=== PATIENT | female | born 1980 | race Caucasian/White ===

== ENCOUNTER 2019-11-10 23:00 | Emergency (ER) | payer SELFPAY ==
[2019-11-10 23:01] VITALS: BP 121/76; PULSE 83; RESP 16; TEMP 36.1; O2SAT 98; BMI 31.8
--- NOTE | 2019-11-10 23:18 | RAD_ITS ---
STUDY: X-RAY CHEST REASON FOR EXAM: Female, 38 years old. C/o cough x 1 month -- now having lt lateral and lt anterior (below breast) rib pain TECHNIQUE: PA and lateral views of the chest. COMPARISON: None. FINDINGS: There are superimposed monitor leads. There is no demonstrated pneumothorax. Mild elevation right hemidiaphragm and compression of right basilar parenchyma. There is no demonstrated pleural abnormality. Normal size heart. Normal mediastinum and luke. Normal visualized pulmonary arteries. Normal visualized aortic arch and descending thoracic aorta. Normal visualized thoracic spine. The eighth left rib course does not extend laterally as the main of the chest wall. There is no acute cortical disruption or adjacent soft tissue swelling or pleural fluid. There is no demonstrated abnormality of the visualized soft tissue structures of the upper abdomen. RAD/Chest PA and Lateral IMPRESSION: Compression of right basilar parenchyma with elevated right hemidiaphragm, small infiltrate not excluded. Variance in contour and course of the left eighth rib can be a congenital variant or posttraumatic. No acute osseous injury detected. Electronically Signed: Roma Park MD at 0:19 EST , Service support ,
--- NOTE | 2019-11-10 23:19 | ED.VIS.GEN ---
History of Present Illness Chief Complaint: Cough Informant: Patient Onset: Weeks - 3 weeks Context: Gradual Onset Current Severity: Moderate Maximum Severity: Moderate Narrative: Patient presents to the ED with continued cough and left lower rib pain. She states that the start of her illness 3 weeks ago she had fever and headache. She thought she had the flu. She was seen by her PCP and given a Z-Karri. When she was seen by her PCP she did not have cough but developed a cough shortly after. Earlier this week due to continued cough and chest congestion she was seen by her PCP again. He gave her a prescription for an antibiotic as well as Tessalon Perles. Patient has not noted significant improvement. Tonight she states she coughed and had sudden sharp worsened pain in the left lower ribs. She denies wheezing. Past Medical History - Allergies and Home Meds Allergies/Adverse Reactions: Allergies No Known Allergies Allergy (Verified 11/10/19 23:01) Primary Care Physician: Андрей Rand DO [Primary Care Provider] - Lives: With Family Smoking Status: Never smoker Review of Systems General: Reports: Fever - At onset of illness only, no fever in the past 2+ weeks. ENT: Denies: Bilateral ear pain, Sore throat Cardiovascular: Reports: Chest pain - Left lower ribs Respiratory: Reports: Dyspnea, Cough, Sputum - Rare sputum production Gastrointestinal: Denies: Abdominal pain, Nausea, Vomiting, Diarrhea Genitourinary: Denies: Dysuria Musculoskeletal: Denies: Extremity Pain Skin: Denies: Rash Neurological: Denies: Headache Allergy: Denies: Uticaria Physical Exam Vital Signs/Narrative: Vital Signs Temp Pulse Resp BP Pulse Ox 11/10/19 23:01 97.0 F L 83 16 121/76 H 98 Inital Vital Signs reviewed: Yes General: Well nourished, Well developed Head: Normocephalic ENT: Moist mucous membranes Neck: Supple Cardiovascular: Regular rate, Regular rhythm Respiratory: No distress, CTA bilaterally, Chest tenderness - Left lower rib tenderness Abdomen: Soft, Nontender Extremities: Nontender Skin: Normal color, No rash Neurological: Alert, Oriented x3 Psychological: Normal affect Diagnostic/Tx/Re-eval Impressions Chest X-Ray 11/10/19 23:18 IMPRESSION: Compression of right basilar parenchyma with elevated right hemidiaphragm, small infiltrate not excluded. Variance in contour and course of the left eighth rib can be a congenital variant or posttraumatic. No acute osseous injury detected. Electronically Signed: Roma Park MD at 0:19 EST , Service support , Chest CTA 11/11/19 00:23 IMPRESSION: No pulmonary embolism, aneurysm, leak or arterial dissection. Right lower lobe pneumonia with component of volume loss, hilar and mediastinal lymph node prominence. No acute vascular, parenchymal, visceral or osseous injury. Electronically Signed: Roma Park MD at 1:58 EST , Service support , 11/10/19 23:18 Chest PA and Lateral [RAD] Stat 11/11/19 00:23 CTA Chest W/WO Contrast [CT] Stat Laboratory Results 11/10/19 11/10/19 11/10/19 23:30 23:30 23:30 WBC 11.2 H RBC 4.38 Hgb 12.1 Hct 36.6 L MCV 83.6 MCH 27.6 MCHC 33.1 RDW Std Deviation 39.3 RDW Coeff of Jack 13.0 Plt Count 398 MPV 10.1 Immature Gran % (Auto) 0.300 Neut % (Auto) 65.7 Lymph % (Auto) 25.8 Collier % (Auto) 6.5 Eos % (Auto) 1.3 Baso % (Auto) 0.4 Absolute Neuts (auto) 7.4 Absolute Lymphs (auto) 2.89 Nucleated RBC % 0 Sodium 139 Potassium 3.9 Chloride 110 H Carbon Dioxide 25.0 Anion Gap 4 L BUN 16 Creatinine 0.97 Estim Creat Clear Calc 65.69 Est GFR (MDRD) Af Amer 83 Est GFR (MDRD) Non-Af 68 BUN/Creatinine Ratio 16.5 Glucose 93 Calcium 8.9 Serum , Qual NEGATIVE - Medical Decision Making Family was able to get a text photo of the antibiotic the patient is taking. Using a pill identifier we were able to determine that she is currently on Bactrim. Patient was given morphine and Zofran on arrival for pain. On repeat examination she is resting comfortably. X-ray does not show definitive acute abnormality in the left lower lung where she is having so much pain. In light of this CTA is pursued. She does have evidence of pneumonia, however it is on the right side. I believe she likely has muscle strain on the left from coughing. She will be given prescription for Levaquin along with Hycodan syrup to help control cough. ED Disposition - Plan for ED Patient: Disposition: Home or Assisted Living Diagnosis: Pneumonia Instructions: PNEUMONIA (Adult) Prescriptions: Hydrocodone Bit/Homatropine [Hycodan Syrup] 5 ml PO Q6H PRN PRN #60 mls PRN Reason: Cough Levofloxacin [Levaquin] 750 mg PO DAILY #4 tablet Referrals: Андрей Rand DO [Primary Care Provider] - 5-7 Days
[2019-11-10 23:31] VITALS: PULSE 87; RESP 16; O2SAT 97
[2019-11-10] MEDS: 0.9% Normal Saline 1,000 ML 150 ML IV (23:32)
[2019-11-10] MEDS: Ondansetron 4 MG/2 ML Vial IV (23:33)
[2019-11-10] MEDS: Morphine 4 MG/ML Syringe IV (23:33)
[2019-11-10 23:45] LABS: Absolute Lymphocyte Count 2.89 X10^3/uL (0.83-4.51); Absolute Neutrophil Count 7.4 X10^3/uL (2.0-7.7); Basophil# 0.05 X10^3/uL; Basophil% 0.4 % (0-1); Eosinophil# 0.14 X10^3/uL; Eosinophils% 1.3 % (0-5); Hematocrit 36.6 % (37-47); Hemoglobin 12.1 g/dL (12.0-15.0); Lymphocyte # 2.89 X10^3/ul (4.0); Lymphocyte % 25.8 % (19-41); Mean Corp Hgb Conc 33.1 g/dL (32-36); Mean Corpuscular Hgb 27.6 pg (27.0-32.0); Mean Corpuscular Volume 83.6 fL (81-99); Mean Platelet Vol. 10.1 fl (6.2-12.0); Monocyte# 0.73 X10^3/uL; Monocyte% 6.5 % (0-10); NRBC Flagged by Analyzer 0 % (0-5); Neutrophil # 7.35 X10^3/uL (2.7-7.7); Neutrophil % 65.7 % (47-70); Platelet Count 398 K/mm3 (150-450); RBC Distribution Width SD 39.3 fl (35.1-43.9); Red Blood Count 4.38 M/mm3 (4.2-5.4); White Blood Count 11.2 K/mm3 (4.4-11.0)
[2019-11-10 23:54] LABS: Internal QC Validated? YES +Cl - CLEAR BKGD; Pregnancy, Serum, hCG Quali. NEGATIVE Negative
[2019-11-10 23:57] LABS: Anion Gap 4 (5-15); BUN 16 mg/dL (7-18); BUN/Creat Ratio 16.5 RATIO (10-20); Calcium,Total 8.9 mg/dL (8.5-10.1); Chloride 110 mmol/L (98-107); Creatinine, Serum 0.97 mg/dL (0.55-1.02); EST Glomerular Filtration Rate 68 mL/min (>60); Est Glom Filt Rate - Afr Amer 83 mL/min (>60); Estimated Creatinine Clearance 65.69 ml/min; Glucose 93 mg/dL (74-106); Potassium 3.9 mmol/L (3.5-5.1); Sodium Level 139 mmol/L (136-145)
--- NOTE | 2019-11-11 00:23 | CT_ITS ---
STUDY: CTA CHEST REASON FOR EXAM: Female, 38 years old. SOB, LEFT SIDE RIB PAIN, COUGH X 1 MONTH, ON ATB RADIATION DOSAGE (If Supplied By Facility): CTDIvol = ( 12.27 ) mGy, DLP = ( 415.99 ) mGycm TECHNIQUE: The examination was performed with the intravenous administration of IV 75mL Isovue-370. Post-processing of the angiographic images was performed, with multiplanar reformation and 3D reconstruction. Individualized dose optimization techniques were used for this CT. COMPARISON: PA and lateral view chest 11/10/2019. FINDINGS: Normal enhancement of the main pulmonary artery and right and left pulmonary arteries. Normal enhancement of the bilateral peripheral pulmonary arteries. There is no demonstrated pulmonary embolism. Normal thoracic aorta and visualized great vessels. There is no demonstrated aortic dissection. Normal heart and pericardium. Enlarged subcarinal lymph nodes. Right hilar lymph node 0.8 x 1.3 cm. Normal visualized trachea and bronchi. Elevation right hemidiaphragm. Airspace disease in the right lower lobe with volume loss. Relative sparing of the posterior medial right lower lobe. There is no demonstrated pneumothorax. Normal pleura. Normal chest wall structures. Normal osseous structures. No acute displaced rib injuries. Normal visualized upper abdomen. CT/CTA Chest W/WO Contrast IMPRESSION: No pulmonary embolism, aneurysm, leak or arterial dissection. Right lower lobe pneumonia with component of volume loss, hilar and mediastinal lymph node prominence. No acute vascular, parenchymal, visceral or osseous injury. Electronically Signed: Roma Park MD at 1:58 EST , Service support ,
[2019-11-11] MEDS: levoFLOXacin 750 MG Tablet PO (02:13)
[2019-11-11 02:35] VITALS: PULSE 73; RESP 16; O2SAT 95
== END 2019-11-11 02:36 | disposition home or self-care (01) ==
PROVIDERS: Emergency Provider Emergency Medicine; PCP Family Medicine
DX: J18.9 Pneumonia, unspecified organism (principal)
CPT/HCPCS: 71046; 71275; 80048; 84703; 85025; 96361; 96374; 96375; 99284; J7030; Q9967; J2405

== ENCOUNTER 2024-04-27 19:22 | Emergency (ER) | payer OTHER, SELFPAY ==
[2024-04-27 19:23] VITALS: BP 127/96; PULSE 82; RESP 18; TEMP 36.7; O2SAT 98; BMI 32.5
[2024-04-27] MEDS: morphine 10 MG/ML Syringe 8 MG IM (21:17)
--- NOTE | 2024-04-27 21:30 | RAD_ITS ---
INDICATION: PAIN, WEAKNESS, SHOOTING PAIN FROM BACK DOWN TO LOWER EXTREMITIES, AND NUMBNESS SINCE NOVEMBER HX OF BULGING DISCS IN LOWER BACK EXAMINATION/TECHNIQUE: X-RAY - XR Sacrum/Coccyx Min 2 Views COMPARISON: None. FINDINGS: 3 views of the sacrum and coccyx. BONES: Normal anatomic alignment without evidence of fracture or subluxation. No concerning bony lesion or abnormal sclerosis to suggest lesion. JOINTS: No significant degenerative change. SOFT TISSUES: Unremarkable. RAD/Sacrum-Coccyx min 2 Views IMPRESSION: Unremarkable sacrum and coccyx radiographs. Electronically Signed: Pancho Wilson MD at 23:03 EDT ,
[2024-04-27 21:39] LABS: Mucous, Urine 0 SEEN /hpf (<or=2+); White Blood Cells 0 SEEN /hpf (0-5)
[2024-04-27 21:42] LABS: Color, Urine Yellow (Yellow); Glucose, Dipstick Normal (Normal); Ketone-Dipstick Negative (Negative); Leukocyte Esterase-Dipstick Negative /ul (Negative); Nitrite-Dipstick Negative (Negative); Occult Blood-Urine 25 /ul (Negative); Protein-Dipstick 30 mg/dl (Negative); Specific Gravity, Urine 1.025 (1.002-1.030); Urine Bilirubin Dipstick Negative (Negative); Urine Clarity Clear (Clear); Urine Urobilinogen Normal (Normal)
[2024-04-27 21:48] LABS: Bacteria RARE /hpf (None Seen); Red Blood Cells-Urine 5-10 SEEN /hpf (0-5); Squamous Epithelial Cells - UA 0-5 SEEN /hpf (5-10)
[2024-04-27 23:22] VITALS: PULSE 66; RESP 17; O2SAT 99
[2024-04-27 23:44] VITALS: BP 116/68; PULSE 66; RESP 17; TEMP 36.1; O2SAT 98
--- NOTE | 2024-04-28 00:10 | ED.VIS.BACK ---
HPI History of Present Illness Chief Complaint: Back Informant: patient and spouse/S.O. Narrative Narrative: Patient is a 43-year-old female presenting with worsening of her chronic back pain. Patient states she has had longstanding back issues for the last 19 years. She intermittently over the years is followed up with chiropractor and been told she has bulging disc. In the fall 2019 she had a particularly bad episode of back she had an MRI. It showed broad-based central disc bulge at L4/5 and L5/S1 as well as disc degeneration and mild bilateral foraminal narrowing. Patient states that in November of this year she went to her chiropractor and they did an adjustment of her back with cracking and since then she has had worsening pain. She notes that over the past 2 weeks her symptoms have flared up. It is in her lower back/tailbone area and radiates down her leg but worse on the left side. She states she feels that she has a hard time leaning over because of pain. Notes that [place] 2 weeks and she was in a 12 passenger van which was uncomfortable for her back as well. Patient states that she has been taking up to 600 mg of ibuprofen multiple times a day with no relief of her symptoms. Denies any bowel or bladder incontinence. She states the pain was so bad today she could not walk which is what brought her to the emergency room. Denies any fever or chills. Denies any trauma. No other complaints or concerns at this time. [facility] Medical History Vaginal delivery Narrowing of lumbar spine Bulging disc Home Medications ?Medication ?Instructions ?Recorded ?Last Taken ?Type Hydrocodone Bit/Homatropine 5 ml PO Q6H PRN PRN Cough ##60 11/11/19 Unknown Rx [Hycodan Syrup] levofloxacin 750 mg tablet 750 mg PO DAILY #4 tabs 11/11/19 Unknown Rx hydrocodone-acetaminophen 5-325mg 1 tab PO Q6H PRN PRN Pain 3 days 04/28/24 Unknown Rx 5mg-325mg #10 TABLETS prednisone 20 mg tablet 40 mg (2 x 20 mg) PO DAILY #8 tabs 04/28/24 Unknown Rx Allergy/AdvReac Type Severity Reaction Status Date / Time No Known Allergies Allergy Verified 04/27/24 19:25 Surgical History History of cholecystectomy Social History Smoking Status: Never smoker ROS ROS ED Constitutional Constitutional ED: Denies chills or fever(s) Cardiovascular Cardiovascular: Denies chest pain Respiratory/Chest Respiratory/Chest: Denies dyspnea Gastrointestinal Gastrointestinal: Denies abdominal pain, nausea or vomiting Genitourinary Genitourinary ED: Reports other Details: Denies urinary incontinence or saddle anesthesia Musculoskeletal Musculoskeletal: Reports back pain; Denies myalgias Integumentary Denies rash Neurologic Neurologic: Denies paresthesias or weakness Psychiatric Psychiatric: Denies anxiety Hematologic/Lymphatic Hematologic/Lymphatic: Denies easy bleeding or easy bruising EXAM Physical Exam Const Vital Signs: 04/27/24 19:23 04/27/24 23:22 04/27/24 23:44 Temperature 98.0 F 97.0 F L Temperature Source Temporal Pulse Rate 82 66 66 Respiratory Rate 18 17 17 Blood Pressure 127/96 H 116/68 Blood Pressure Mean 106 84 Pulse Ox 98 99 98 Oxygen Delivery Method Room Air Room Air Positive well nourished and well developed General Appearance ED: well developed and NAD HEENT Reports moist mucous membranes Neck supple Resp normal respiratory effort and clear to auscultation bilaterally Cardio regular rate and regular rhythm Cardio Narrative: 2+ DP pulses Back/Spine normal to inspection and no thoracic nor lumbar tenderness Back/Spine Narrative: Sensation intact in all dermatomes. 5/5 strength with dorsal and plantarflexion of the feet. Brisk bilateral patellar reflexes. No clonus of the ankles appreciated. Straight leg raise of the right leg causes shooting pain down the left leg. Only mild discomfort with straight leg rise of the left lower extremity. Thoracic Spine / Upper Back: Negative for paraspinal muscle tenderness Lumbar Spine / Lower Back: ROM limited and straight leg raise positive right at 50 degrees Extremity normal to inspection General Extremety ED: Negative for edema General Extremity: Negative for edema Neuro oriented x3 and no sensory deficits noted Sensorium / Orientation: alert Motor Exam: strength 5/5 throughout Psych mental status grossly normal Skin no rashes or lesions noted and no wounds MDM MDM MDM Narrative Medical decision making narrative: Patient is evaluated for worsening of her chronic back pain. She has no midline tenderness. She does not have any risk factors for cauda equina syndrome. She does not have any red flags for cauda equina syndrome. She is hemodynamically stable in the emergency room with normal vital signs. She does report a little bit of urgency with urination but denies any bowel or bladder incontinence. Urinalysis obtained which is not consistent with infection. Lumbar and sacral x-ray obtained and reviewed by myself as well as radiology. Does not show any acute fracture. Patient is given dose of IM morphine for pain control in the emergency room. Repeat evaluation she states she feels a little woozy but is feeling better from a pain standpoint. Will start her on a burst of prednisone and give first dose in the emergency room. Will give a short course of Jenner for breakthrough pain at home. Is given a referral for spine. Patient verbalized agreement or stands plan. Discharged home in stable addition History & Record Review Additional record(s) reviewed:: Prior outpatient record (MRI from 2019 that patient brought in-see HPI) Lab Data Attestation: I reviewed the patient's lab results. Labs: Laboratory Results - last 24 hr 04/27/24 21:34 Urine Color Yellow Urine Clarity Clear Urine pH 6.0 Ur Specific [place] 1.025 Urine Protein 30 H Urine Glucose (UA) Normal Urine Ketones Negative Urine Occult Blood 25 H Urine Nitrite Negative Urine Bilirubin Negative Urine Urobilinogen Normal Ur Leukocyte Esterase Negative Urine RBC 5-10 SEEN Urine WBC 0 SEEN Ur Squamous Epith Cells 0-5 SEEN Urine Bacteria RARE Urine Mucus 0 SEEN Radiography Diagnostic Testing: Clinical Impression(s) from Imaging Studies Sacrum and Coccyx X-Ray 04/27/24 21:30 IMPRESSION: Unremarkable sacrum and coccyx radiographs. Electronically Signed: Pancho Wilson MD at 23:03 EDT , Discharge Plan Triage Chief Complaint: Back ED Provider: Carli Lopez Dx/Rx/DC Orders Clinical Impression: Acute low back pain with sciatica Instructions: ED Back Sprain/Strain, ED Sciatica Prescriptions: New hydrocodone-acetaminophen 5-325 mg tablet 1 tab PO Q6H PRN PRN (Reason: Pain) 3 Days Qty: 10 0RF prednisone 20 mg tablet 40 mg PO DAILY Qty: 8 0RF No Action levofloxacin 750 MG tablet 750 mg PO DAILY Qty: 4 0RF Hydrocodone Bit/Homatropine [Hycodan Syrup] 5 ML Udc 5 ml PO Q6H PRN PRN (Reason: Cough) Qty: 60 0RF Primary Care Provider: Андрей Rand Referrals: Sherif Eugene MD [Med Staff - Active Staff] - As soon as possible Андрей Rand DO [Primary Care Provider] - Activity Restrictions/Additional Instructions: Alternate Tylenol and ibuprofen. You been given a prescription pain medication (Jenner or hydrocodone) for breakthrough pain. Please take the steroids once a day as prescribed. Try gentle stretching. I begin referral for spine doctor as well. Print Language: Welsh Disposition Disposition: Home, Self Care
[2024-04-28] MEDS: predniSONE 20 MG Tablet 40 MG PO (00:15)
== END 2024-04-28 00:30 | disposition home or self-care (01) ==
PROVIDERS: Emergency Provider Emergency Medicine; PCP Family Medicine; Visit Provider Emergency Medicine
DX: M54.40 Lumbago with sciatica, unspecified side (principal)
CPT/HCPCS: 72220; 81001; 96372; 99284

== ENCOUNTER 2024-08-09 08:59 | Outpatient (CLI) | payer SELFPAY ==
--- NOTE | 2024-08-09 09:07 | BD_ITS ---
STUDY: DUAL ENERGY X-RAY ABSORPTIOMETRY / DXA REASON FOR EXAM: Female, 43 years old. V76.12ScreeningBONE DENSITY REASON FOR EXAM TECHNIQUE: Bone Mineral Density (BMD) measurements of lumbar spine and bilateral hips were obtained. COMPARISON: None. FINDINGS: Lumbar Spine (L1-L4): g/cm2 (1.054) / T-score (0.1) / Z-score (0.4) Findings are suggestive of normal bone density with a low fracture risk. Left Femur Total: g/cm2 (0.909) / T-score (-0.3) / Z-score (0.0) Left Femoral Neck: g/cm2 (0.760) / T-score (-0.8) / Z-score (-0.4) Right Femur Total: g/cm2 (0.885) / T-score (-0.5) / Z-score (-0.2) Right Femoral Neck: g/cm2 (0.795) / T-score (-0.5) / Z-score (-0.1) BD/Dexa Bone Density Study IMPRESSION: The patient is considered normal as outlined below according to World Alli Organization (WHO) criteria with a low fracture risk. Reference Information: The T-score is the number of standard deviations above or below the standard which is normal for young adults at their peak bone mineral density. The World Health Organization (WHO) interprets the T-scores as follows: Above -1 Normal bone density Between -1 and -2.5 Osteopenia Equal to / or below -2.5 Osteoporosis As a practical clinical guideline, osteopenia may be graded as follows: Mild -1 through -1.5 Moderate -1.6 through -2.0 Severe -2.1 through -2.4 The Z-score is the number of standard deviations above or below age-matched controls. A Z-score of less than -1.5 would be considered abnormal. References: 1. NIH Osteoporosis and Related Bone Diseases www osteo.org 2. International Society for Clinical Densitometry www iscd.org 3. National Osteoporosis Foundation www nof.org Electronically Signed: Jasiel Plata MD at 13:12 EST ,
== END 2024-08-09 23:59 | disposition home or self-care (01) ==
PROVIDERS: PCP Family Medicine
DX: Z13.820 Encounter for screening for osteoporosis (principal); M51.26 Other intervertebral disc displacement, lumbar region
CPT/HCPCS: 77080

== ENCOUNTER → 2024-10-11 | Outpatient (CLI) | payer SELFPAY ==
--- NOTE | 2024-10-11 07:58 | ECHOD_ITS ---
Reason For Study: Palpitations Procedure This was a 2D Doppler, Color Flow transthoracic echocardiogram. Exam performed in department. Left Ventricle Normal LV size. Left ventricular systolic function is normal. The left ventricular ejection fraction is 60 %. No regional wall motion abnormalities noted. Right Ventricle Normal RV size. Normal systolic function. Atria Normal left atrium. Normal right atrium. Mitral Valve Normal mitral valve. Tricuspid Valve Normal tricuspid valve. Aortic Valve Trisinus/trileaflet aortic valve. Pulmonic Valve The pulmonic valve is not well visualized. Great Vessels Normal aortic root. The pulmonary artery is normal size. Normal inferior vena cava. Pericardium/Pleural No pericardial effusion. MMode/2D Measurements & Calculations LVIDd: 4.7 cm IVSd: 0.76 cm Ao root diam: 2.5 cm LVIDs: 3.1 cm LVPWd: 0.69 cm RVDd: 2.8 cm FS: 34.4 % _ LAV(MOD-bp): 24.4 ml LVAd ap4: 25.8 cm2 SV(MOD-sp4): 43.1 ml LAV(MOD-bp) Indexed: 13.1 ml/m2 LVLd ap4: 7.3 cm SI(MOD-sp4): 23.0 ml/m2 LAV(MOD-sp2): 28.9 ml EDV(MOD-sp4): 75.1 ml LAV(MOD-sp4): 18.4 ml EDV(sp4-el): 77.7 ml LVAs ap4: 14.8 cm2 LVLs ap4: 5.7 cm ESV(MOD-sp4): 32.1 ml ESV(sp4-el): 32.3 ml EF(MOD-sp4): 57.3 % EF(sp4-el): 58.4 % _ SV(sp4-el): 45.4 ml LA A4 area: 9.7 cm2 LA dimension(2D): 3.0 cm _ RA A4 area: 10.1 cm2 TAPSE: 2.2 cm Time Measurements MV dec time: 0.12 sec Doppler Measurements & Calculations MV E max maximiliano: 93.1 cm/sec Lat Peak E' Maximiliano: 15.2 cm/sec Med Peak E' Maximiliano: 8.4 cm/sec MV A max maximiliano: 52.1 cm/sec E/E' lat: 6.1 E/E' med: 11.1 MV E/A: 1.8 _ Ao V2 max: 108.0 cm/sec LV V1 max: 96.2 cm/sec MV dec slope: 781.0 cm/sec2 Ao max P.7 mmHg LV V1 max P.7 mmHg Ao V2 mean: 76.7 cm/sec LV V1 mean P.0 mmHg Ao mean P.7 mmHg LV V1 mean: 66.2 cm/sec Ao V2 VTI: 25.4 cm LV V1 VTI: 21.7 cm AV (velocity ratio): 0.86 _ PA V2 max: 70.0 cm/sec TR max maximiliano: 216.9 cm/sec TR max P.8 mmHg ECHO/Echo Complete Interpretation Summary Normal LV size. Left ventricular systolic function is normal. The left ventricular ejection fraction is 60 %. Structurally normal valves. Ordering Physician: Andreea Servin Referring Physician: Andreea Servin Performed By: Ana Chan, JILLIAN, RVT
== END | disposition home or self-care (01) ==
PROVIDERS: PCP Nurse Practitioner Family; Referring Provider Nurse Practitioner Family; Visit Provider Nurse Practitioner Family
DX: R00.2 Palpitations (principal)
CPT/HCPCS: 93225; 93226; 93306

== ENCOUNTER → 2024-11-14 | Outpatient (CLI) | payer SELFPAY ==
--- NOTE | 2024-11-14 10:45 | RAD_ITS ---
PROCEDURE: LUMBAR SPINE 2 OR 3 VIEWS ([facility]), 11/14/2024 REASON FOR EXAM: LUMBAR DISC HERNIATION TECHNIQUE: AP and lateral views of the lumbar spine were obtained. COMPARISON: None FINDINGS: Operative changes of disc replacement at L4-L5 and L5-S1. Fracture/dislocation: None visible. Vertebral body heights: Preserved. Alignment: Unremarkable. Disc spaces: As above. Disc heights otherwise preserved. Facets: Suspect mild facet arthropathy at L5-S1. Soft tissues: Unremarkable. Foreign bodies: None visible. Bone mineralization: Grossly unremarkable. RAD/Lumbar Spine 2 or 3 Views IMPRESSION: 1. Operative changes as above without visible acute abnormality. 2. Additional description as above. Reading Location: [facility]
== END | disposition home or self-care (01) ==
LOC: RAD 10:31
PROVIDERS: PCP Nurse Practitioner Family; Referring Provider Orthopaedic Surgery Orthopaedic Surgery of the Spine; Visit Provider Orthopaedic Surgery Orthopaedic Surgery of the Spine
DX: M51.26 Other intervertebral disc displacement, lumbar region (principal)
CPT/HCPCS: 72100

== ENCOUNTER → 2024-12-05 | Outpatient (CLI) | payer SELFPAY ==
--- NOTE | 2024-12-05 11:10 | RAD_ITS ---
PROCEDURE: L/S SPINE MIN 4 VIEWS 12/05/2024 REASON FOR EXAM: OTHER INTERVERTEBRAL DISC DISPLACEMENT, LUMBAR REGION TECHNIQUE: Standing AP, lateral neutral and lateral flexion-extension, 4 total images COMPARISON: 11/14/2024 FINDINGS: 5 [id number] lumbar vertebral body types. Again note of previous intervertebral disc spacers L4-5 and L5-S1 again appear anatomic without significant interval change in appearance. No fracture or malalignment. No evidence of instability on flexion-extension views. There is not much degree of change in range of motion between the neutral, flexion or extension. RAD/L/S Spine Min 4 Views IMPRESSION: Again note of previous intervertebral disc spacers L4-5 and L5-S1 again appear anatomic without significant interval change in appearance as above. Reading Location: [id number]
== END | disposition home or self-care (01) ==
LOC: RAD 11:03
PROVIDERS: PCP Nurse Practitioner Family; Referring Provider Orthopaedic Surgery Orthopaedic Surgery of the Spine; Visit Provider Orthopaedic Surgery Orthopaedic Surgery of the Spine
DX: M51.26 Other intervertebral disc displacement, lumbar region (principal)
CPT/HCPCS: 72110

== ENCOUNTER → 2025-01-06 | Outpatient (CLI) | payer SELFPAY | END | disposition home or self-care (01) | PROVIDERS: PCP Nurse Practitioner Family; Referring Provider Nurse Practitioner Family; Visit Provider Nurse Practitioner Family | DX: R10.30 Lower abdominal pain, unspecified (principal) ==

== ENCOUNTER → 2025-01-16 | Outpatient (CLI) | payer SELFPAY ==
--- NOTE | 2025-01-16 15:05 | RAD_ITS ---
PROCEDURE: L/S SPINE MIN 4 VIEWS 01/16/2025 REASON FOR EXAM: LUMBAR DISC HERNIATION TECHNIQUE: Four views, AP, lateral and flexion-extension COMPARISON: 12/05/2024 FINDINGS: Status post intervertebral disc replacement/prosthesis L4-5 and L5-S1 appear intact and anatomic. No fracture or malalignment. No evidence of instability. RAD/L/S Spine Min 4 Views IMPRESSION: No significant interval change in appearance of the lumbar spine as above. Reading Location: [id number]
== END | disposition home or self-care (01) ==
PROVIDERS: PCP Nurse Practitioner Family; Referring Provider Orthopaedic Surgery Orthopaedic Surgery of the Spine; Visit Provider Orthopaedic Surgery Orthopaedic Surgery of the Spine
DX: M51.26 Other intervertebral disc displacement, lumbar region (principal)
CPT/HCPCS: 72110

== ENCOUNTER → 2025-04-25 | Outpatient (CLI) | payer SELFPAY ==
--- NOTE | 2025-04-25 09:34 | RAD_ITS ---
PROCEDURE: L/S SPINE MIN 4 VIEWS 04/25/2025 REASON FOR EXAM: LUMBAR DISC HERNIATION TECHNIQUE: L/S SPINE MIN 4 VIEWS COMPARISON: 01/18/2025. FINDINGS: No evidence of acute fracture or dislocation. L4-5 and L5-S1 prosthetic discs. Up to mild disc space narrowing of the other visualized levels. RAD/L/S Spine Min 4 Views IMPRESSION: L4-5 and L5-1 prosthetic discs. Up to mild spondylosis of the non fused levels. Reading Location: [id number]
--- OUTSIDE RECORDS SUMMARY | 2025-04-25 12:26 | XMS RPT_ITS | CCD ---
Author Organization [facility] Care Team Providers Care Silvering Applicator Name Role Phone YURIDIA CLOUD DC Admitting Unavailable YURIDIA CLOUD DC Attending Unavailable YURIDIA CLOUD DC Primary Care Unavailable АНДРЕЙ RAND Consulting Unavailable PROVIDER, UNKNOWN Consulting Unavailable Keyona PATTEN, Dr. Chiang Primary Care Provider PRIETO HULL Attending Provider [phone] PRIETO HULL Referring Provider Malathi ANALYZER SALES-C, Andreea Ellen Primary Care Provider Malathi ANALYZER SALES-C, Andreea Ellen Attending Provider [place] ANALYZER SALES-C, Andreea Ellen Referring Provider [phone] [place] CHANEL, Dr. Pacheco Attending Provider Della CHANEL, Dr. Prieto Davis Attending Provider [phone] Della CHANEL, Dr. Prieto Davis Referring Provider MA CAREN Attending Unavailable Андрей Rand Primary Care Unavailable MACAREN Referring Unavailable Kapper ANALYZER SALES, Andreea Ellen Primary Care Unavailabl e Kapper ANALYZER SALES, Andreea Ellen Referring Unavailabl e Kapper ANALYZER SALES, Andreea Ellen Attending Unavailabl e Malathi ANALYZER SALES, Andreea Ellen Primary Care UnavailPrieto Patterson Referring Unavailable Prieto Hull Attending Unavailable [place] ANALYZER SALES, Andreea Ellen Referring Unavailabl e Kapper ANALYZER SALES, Andreea Ellen Attending Unavailabl e Malathi ANALYZER SALES, Andreea Ellen Primary Care UnavailPrieto Patterson Referring Unavailable Prieto Hull Attending Unavailable Malathi ANALYZER SALES, Andreea Ellen Primary Care UnavailPrieto Patterson Referring Unavailable Prieto Hull Attending Unavailable Malathi ANALYZER SALES, Andreea Ellen Primary Care Unavailabl Carli Yusuf Attending Unavailable Андрей Rand Primary Care Unavailable Malathi ANALYZER SALES, Andreea Hughes Referring Unavailabl e Malathi ANALYZER SALES, Andreea Hughes Attending Unavailabl e Malathi ANALYZER SALES, [facility] Unavailabl e Malathi ANALYZER SALES, Andreea Ellen Primary Care Unavailabl e Junior Mead Attending Unavailable Malathi ANALYZER SALES, Andreea Ellen Referring Unavailabl e Malathi ANALYZER SALES, Andreea Ellen Primary Care Unavailabl e [place], Junior Attending Unavailable Medications Current Medications Medication Drug Class(es) Dates Sig (Normalized) Sig (Original) acetaminophen 325 mg / HYDROcodone bitartrate 5 mg oral tablet (4 sources) Opioid Agonist Start: 04-28-2024 take 1 tablet by mouth every six hours as needed for pain Hydrocodone-Acetam inophen 5-325 mg tablet Active 1 {tbl} PO EVERY 6 HOURS NEEDED as needed for Pain 10 April 28, 2024 Hydrocodone Bit/Homatropine (Hycodan Syrup) 5 ML Udc (4 sources) Start: 11-11-2019 Hydrocodone Bit/Homatropine (Hycodan Syrup) 5 ML Udc Active 5 mL PO EVERY 6 HOURS NEEDED as needed for Cough 60 November 11, 2019 levoFLOXacin 750 mg oral tablet (4 sources) Quinolone Antimicrobial Start: 11-11-2019 take 1 tablet by mouth once daily Levofloxacin 750 MG tablet Active 750 mg PO DAILY 4 November 11, 2019 1:00am predniSONE 20 mg oral tablet (4 sources) Start: 04-28-2024 take 2 tablets by mouth once daily Prednisone 20 mg tablet Active 40 mg PO DAILY April 28, 2024 12:00am Problems Active Problems Problem Classification Problem Date Documented Date Episodic/Chronic Abdominal pain (1 source) Lower abdominal pain, unspecified; Translations: [Lower abdominal pain, unspecified] Onset: 01-11-2025 Episodic Cardiac dysrhythmias (1 source) Palpitations; Translations: [Palpitations] Onset: 12-15-2024 Episodic Other nervous system disorders (1 source) Other acute postprocedural pain; Translations: [Other acute postprocedural pain] Onset: 01-16-2025 Episodic Pneumonia (except that caused by tuberculosis or sexually transmitted disease) (4 sources) Pneumonia; Translations: [Pneumonia, unspecified organism] 11-12-2019 Episodic Spondylosis; intervertebral disc disorders; other back problems (1 source) Other intervertebral disc displacement, lumbar region; Translations: [Other intervertebral disc displacement, lumbar region] Onset: 01-19-2025 Chronic Past or Other Problems Problem Classification Problem Date Documented Da te Episodic/Chronic Other screening for suspected conditions (not mental disorders or infectious disease) (1 source) Encounter for screening for osteoporosis; Translations: [Encounter for screening for osteoporosis] Onset: 10-06-2024 Episodic Spondylosis; intervertebral disc disorders; other back problems (5 sources) Acute back pain with sciatica; Translations: [Lumbago with sciatica, unspecified side] Onset: 04-28-2024 05-06-2024 Episodic Results Test Name Value Interpretation Reference Range Facil ity L/S Spine Min 4 Viewson 01-05 L/S Spine Min 4 Views [facility] Imaging Services [address] [place], [place] [address] (265) L/S Spine Min 4 Views MR#: [id number] Acct: [id number] Name: KATHERINE ESTRADA Rep #: [id number] : 1980 F 44 From: Ishan Browning MD PCP: Andreea Servin, ANALYZER SALES-C Status: REG CLI Study: L/S Spine Min 4 Views Date of Exam: 01/16/25 Exam# [id number] Ordering Dr: Prieto Hull MD PROCEDURE: L/S SPINE MIN 4 VIEWS 01/16/2025 REASON FOR EXAM: LUMBAR DISC HERNIATION TECHNIQUE: Four views, AP, lateral and flexion-extension COMPARISON: 12/05/2024 FINDINGS: Status post intervertebral disc replacement/prosthesis L4-5 and L5-S1 appear intact and anatomic. No fracture or malalignment. No evidence of instability. RAD/L/S Spine Min 4 Views IMPRESSION: No significant interval change in appearance of the lumbar spine as above. Reading Location: [facility] CC: ANALYZER SALES-C Andreea Servin; Dr. Prieto Hull MD Integration Software Developer: Signed Normal [facility] L/S Spine Min 4 Viewson 11-07 L/S Spine Min 4 Views [facility] Imaging Services [address] [place], [place] [address] L/S Spine Min 4 Views MR#: [id number] Acct: [id number] Name: KATHERINE ESTRADA Rep #: [id number] : 1980 F 44 From: Ishan Browning MD PCP: Andreea Servin, ANALYZER SALES-C Status: REG CLI Study: L/S Spine Min 4 Views Date of Exam: 12/05/24 Exam# [id number] Ordering Dr: Prieto Hull MD PROCEDURE: L/S SPINE MIN 4 VIEWS 12/05/2024 REASON FOR EXAM: OTHER INTERVERTEBRAL DISC DISPLACEMENT, LUMBAR REGION TECHNIQUE: Standing AP, lateral neutral and lateral flexion-extension, 4 total images COMPARISON: 11/14/2024 FINDINGS: 5 [id number]-[id number] lumbar vertebral body types. Again note of previous intervertebral disc spacers L4-5 and L5-S1 again appear anatomic without significant interval change in appearance. No fracture or malalignment. No evidence of instability on flexion-extension views. There is not much degree of change in range of motion between the neutral, flexion or extension. RAD/L/S Spine Min 4 Views IMPRESSION: Again note of previous intervertebral disc spacers L4-5 and L5-S1 again appear anatomic without significant interval change in appearance as above. Reading Location: [facility] CC: ANALYZER SALES-C Andreea Servin; Dr. Prieto Hull MD Integration Software Developer: Signed Normal [facility] Lumbar Spine 2 or 3 Viewson 11-14-2024 Lumbar Spine 2 or 3 Views [facility] Imaging Services [address] [place], [place] [address] Lumbar Spine 2 or 3 Views MR#: [id number] Acct: [id number] Name: KATHERINE ESTRADA Rep #: [id number] : 1980 F 43 From: Deonte Mendez MD PCP: Andreea Servin, ANALYZER SALES-C Status: REG CLI Study: Lumbar Spine 2 or 3 Views Date of Exam: Exam# [id number] Ordering Dr: Prieto Hull MD PROCEDURE: LUMBAR SPINE 2 OR 3 VIEWS ([facility]), 11/14/2024 REASON FOR EXAM: LUMBAR DISC HERNIATION TECHNIQUE: AP and lateral views of the lumbar spine were obtained. COMPARISON: None FINDINGS: Operative changes of disc replacement at L4-L5 and L5-S1. Fracture/dislocation: None visible. Vertebral body heights: Preserved. Alignment: Unremarkable. Disc spaces: As above. Disc heights otherwise preserved. Facets: Suspect mild facet arthropathy at L5-S1. Soft tissues: Unremarkable. Foreign bodies: None visible. Bone mineralization: Grossly unremarkable. RAD/Lumbar Spine 2 or 3 Views IMPRESSION: 1. Operative changes as above without visible acute abnormality. 2. Additional description as above. Reading Location: [facility] CC: ANALYZER SALES-C Andreea Servin; Dr. Prieto Hull MD Integration Software Developer: Signed Normal [facility] Echo Completeon 10-11-2024 Echo Complete [facility] Cardiovascular Services [address] [place] [address] Echo Complete 10/11/24 0812 MR#: [id number] Acct: [id number] Name: KATHERINE ESTRADA Rep #: [id number] : 1980 43 From: Junior Mead MD Attending Dr: Andreea Servin, ABRAHAM-Francine Status: R EG CLI Ordering Dr: Andreea Servin NP ANALYZER SALESAmalia Date: Location: [facility] Sex: F C Admitted: Reason For Study: Palpitations Procedure This was a 2D Doppler, Color Flow transthoracic echocardiogram. Exam performed in department. Left Ventricle Normal LV size. Left ventricular systolic function is normal. The left ventricular ejection fraction is 60 %. No regional wall motion abnormalities noted. Right Ventricle Normal RV size. Normal systolic function. Atria Normal left atrium. Normal right atrium. Mitral Valve Normal mitral valve. Tricuspid Valve Normal tricuspid valve. Aortic Valve Trisinus/trileaflet aortic valve. Pulmonic Valve The pulmonic valve is not well visualized. Great Vessels Normal aortic root. The pulmonary artery is normal size. Normal inferior vena cava. Pericardium/Pleural No pericardial effusion. MMode/2D Measurements Calculations LVIDd: 4.7 cm IVSd: 0.76 cm Ao root diam: 2.5 cm LVIDs: 3.1 cm LVPWd: 0.69 cm RVDd: 2.8 cm FS: 34.4 % LAV(MOD-bp): 24.4 ml LVAd ap4: 25.8 cm2 SV(MOD-sp4): 43.1 ml LAV(MOD-bp) Indexed: 13.1 ml/m2 LVLd ap4: 7.3 cm SI(MOD-sp4): 23.0 ml/m2 LAV(MOD-sp2): 28.9 ml EDV(MOD-sp4): 75.1 ml LAV(MOD-sp4): 18.4 ml EDV(sp4-el): 77.7 ml LVAs ap4: 14.8 cm2 LVLs ap4: 5.7 cm ESV(MOD-sp4): 32.1 ml ESV(sp4-el): 32.3 ml EF(MOD-sp4): 57.3 % EF(sp4-el): 58.4 % SV(sp4-el): 45.4 ml LA A4 area: 9.7 cm2 LA dimension(2D): 3.0 cm RA A4 area: 10.1 cm2 TAPSE: 2.2 cm Time Measurements MV dec time: 0.12 sec Doppler Measurements Calculations MV E max maximiliano: 93.1 cm/sec Lat Peak E' Maximiliano: 15.2 cm/sec Med Peak E' Maximiliano: 8.4 cm/sec MV A max maximiliano: 52.1 cm/sec E/E' lat: 6.1 E/E' med: 11.1 MV E/A: 1.8 Ao V2 max: 108.0 cm/sec LV V1 max: 96.2 cm/sec MV dec slope: 781.0 cm/sec2 Ao max P.7 mmHg LV V1 max P.7 mmHg Ao V2 mean: 76.7 cm/sec LV V1 mean P.0 mmHg Ao mean P.7 mmHg LV V1 mean: 66.2 cm/sec Ao V2 VTI: 25.4 cm LV V1 VTI: 21.7 cm AV (velocity ratio): 0.86 PA V2 max: 70.0 cm/sec TR max maximiliano: 216.9 cm/sec TR max P.8 mmHg ECHO/Echo Complete Interpretation Summary Normal LV size. Left ventricular systolic function is normal. The left ventricular ejection fraction is 60 %. Structurally normal valves. Ordering Physician: Andreea Servin Referring Physician: Andreea Servin Performed By: Ana Chan, JILLIAN, RVT 10/11/24 1029 Date Junior Mead MD CC: ANALYZER SALES-C Andreea Servin Date Dictated: 10/11/24811 Date Transcribed: 10/11/24 102 Integration Software Developer: Signed Normal [facility] Dexa Bone Density Studyon Dexa Bone Density Study [facility] Imaging Services [address] [place] [id number] Dexa Bone Density Study MR#: [id number] Acct: [id number] Name: KATHERINE ESTRADA Rep #: [id number] : 1980 F 43 From: Jasiel gorman MD PCP: Dr. Андрей Rand, Status: [facility] Study: Dexa Bone Density Study Date of Exam: 08/09/24 Exam# [id number] Ordering Dr: PRIETO HULL [id number] STUDY: DUAL ENERGY X-RAY ABSORPTIOMETRY / DXA REASON FOR EXAM: Female, 43 years old. V76.12ScreeningBONE DENSITY REASON FOR EXAM TECHNIQUE: Bone Mineral Density (BMD) measurements of lumbar spine and bilateral hips were obtained. COMPARISON: None. FINDINGS: Lumbar Spine (L1-L4): g/cm2 (1.054) / T-score (0.1) / Z-score (0.4) Findings are suggestive of normal bone density with a low fracture risk. Left Femur Total: g/cm2 (0.909) / T-score (-0.3) / Z-score (0.0) Left Femoral Neck: g/cm2 (0.760) / T-score (-0.8) / Z-score (-0.4) Right Femur Total: g/cm2 (0.885) / T-score (-0.5) / Z-score (-0.2) Right Femoral Neck: g/cm2 (0.795) / T-score (-0.5) / Z-score (-0.1) BD/Dexa Bone Density Study IMPRESSION: The patient is considered normal as outlined below according to World Alli Organization (WHO) criteria with a low fracture risk. Reference Information: The T-score is the number of standard deviations above or below the standard which is normal for young adults at their peak bone mineral density. The World Health Organization (WHO) interprets the T-scores as follows: Above -1 Normal bone density Between -1 and -2.5 Osteopenia Equal to / or below -2.5 Osteoporosis As a practical clinical guideline, osteopenia may be graded as follows: Mild -1 through -1.5 Moderate -1.6 through -2.0 Severe -2.1 through -2.4 The Z-score is the number of standard deviations above or below age-matched controls. A Z-score of less than -1.5 would be considered abnormal. References: 1. NIH Osteoporosis and Related Bone Diseases www osteo.org 2. International Society for Clinical Densitometry www iscd.org 3. National Osteoporosis Foundation www nof.org Electronically Signed: Jasiel Plata MD at 13:12 EST , CC: Dr. Андрей Rand, DO; PRIETO HULL Integration Software Developer: Signed Normal [facility] Emergency Department Summary on 04-28-2024 Emergency Department Summary [facility] Medical Records Department [address] [place] [address] Emergency Department Summary 04/28/24 MR#: [id number] Acct: [id number] Name: KATHERINE ESTRADA Rep #: [id number] : 1980 43 From: Carli Lopez DO PCP: Dr. Андрей Rand DO Status:[facility] ER Location: ED HPI History of Present Illness Chief Complaint: Back Informant: patient and spouse/S.O. Narrative Narrative: Patient is a 43-year-old female presenting with worsening of her chronic back pain. Patient states she has had longstanding back issues for the last 19 years. She intermittently over the years is followed up with chiropractor and been told she has bulging disc. In the fall 2019 she had a particularly bad episode of back she had an MRI. It showed broad-based central disc bulge at L4/5 and L5/S1 as well as disc degeneration and mild bilateral foraminal narrowing. Patient states that in November of this year she went to her chiropractor and they did an adjustment of her back with cracking and since then she has had worsening pain. She notes that over the past 2 weeks her symptoms have flared up. It is in her lower back/tailbone area and radiates down her leg but worse on the left side. She states she feels that she has a hard time leaning over because of pain. Notes that [place] road trip [place] 2 weeks and she was in a 12 passenger van which was uncomfortable for her back as well. Patient states that she has been taking up to 600 mg of ibuprofen multiple times a day with no relief of her symptoms. Denies any bowel or bladder incontinence. She states the pain was so bad today she could not walk which is what brought her to the emergency room. Denies any fever or chills. Denies any trauma. No other complaints or concerns at this time. [facility] Medical History Vaginal delivery Narrowing of lumbar spine Bulging disc Home Medications ???Medication ???Instructions ???Recorded ???Last Taken ???Type Hydrocodone Bit/Homatropine 5 ml PO Q6H PRN PRN Cough ##60 11/11/19 Unknown Rx [Hycodan Syrup] levofloxacin 750 mg tablet 750 mg PO DAILY #4 tabs 11/11/19 Unknown Rx hydrocodone-acetaminop hen 5-325mg 1 tab PO Q6H PRN PRN Pain 3 days 04/28/24 Unknown Rx 5mg-325mg #10 TABLETS prednisone 20 mg tablet 40 mg (2 x 20 mg) PO DAILY #8 tabs 04/28/24 Unknown Rx Allergy/AdvReac Type Severity Reaction Status Date / Time No Known Allergies Allergy Verified 04/27/24 19:25 Surgical History History of cholecystectomy Social History Smoking Status: Never smoker ROS ROS ED Constitutional Constitutional ED: Denies chills or fever(s) Cardiovascular Cardiovascular: Denies chest pain Respiratory/Chest Respiratory/Chest: Denies dyspnea Gastrointestinal Gastrointestinal: Denies abdominal pain, nausea or vomiting Genitourinary Genitourinary ED: Reports other Details: Denies urinary incontinence or saddle anesthesia Musculoskeletal Musculoskeletal: Reports back pain; Denies myalgias Integumentary Denies rash Neurologic Neurologic: Denies paresthesias or weakness Psychiatric Psychiatric: Denies anxiety Hematologic/Lymphatic Hematologic/Lymphatic: Denies easy bleeding or easy bruising EXAM Physical Exam Const Vital Signs: 04/27/24 19:23 04/27/24 23:22 04/27/24 23:44 Temperature 98.0 F 97.0 F L Temperature Source Temporal Pulse Rate 82 66 66 Respiratory Rate 18 17 17 Blood Pressure 127/96 H 116/68 Blood Pressure Mean 106 84 Pulse Ox 98 99 98 Oxygen Delivery Method Room Air Room Air Positive well nourished and well developed General Appearance ED: well developed and NAD HEENT Reports moist mucous membranes Neck supple Resp normal respiratory effort and clear to auscultation bilaterally Cardio regular rate and regular rhythm Cardio Narrative: 2+ DP pulses Back/Spine normal to inspection and no thoracic nor lumbar tenderness Back/Spine Narrative: Sensation intact in all dermatomes. 5/5 strength with dorsal and plantarflexion of the feet. Brisk bilateral patellar reflexes. No clonus of the ankles appreciated. Straight leg raise of the right leg causes shooting pain down the left leg. Only mild discomfort with straight leg rise of the left lower extremity. Thoracic Spine / Upper Back: Negative for paraspinal muscle tenderness Lumbar Spine / Lower Back: ROM limited and straight leg raise positive right at 50 degrees Extremity normal to inspection General Extremety ED: Negative for edema General Extremity: Negative for edema Neuro oriented x3 and no sensory deficits noted Sensorium / Orientation: alert Motor Exam: strength (more content not included)... Normal [facility] Sacrum-Coccyx min 2 Viewson 04-27-2024 Sacrum-Coccyx min 2 Views [facility] Imaging Services [address] [place], [place] [address] Sacrum-Coccyx min 2 Views MR#: [id number] Acct: [id number] Name: KATHERINE ESTRADA Rep #: [id number] : 1980 F 43 From: Pancho Wilson MD PCP: Dr. Андрей Rand, Status: REG ER Study: Sacrum-Coccyx min 2 Views Date of Exam: Exam# [id number] Ordering Dr: Carli Lopez DO [id number] INDICATION: PAIN, WEAKNESS, SHOOTING PAIN FROM BACK DOWN TO LOWER EXTREMITIES, AND NUMBNESS SINCE NOVEMBER HX OF BULGING DISCS IN LOWER BACK EXAMINATION/TECHNIQUE: X-RAY - XR Sacrum/Coccyx Min 2 Views COMPARISON: None. FINDINGS: 3 views of the sacrum and coccyx. BONES: Normal anatomic alignment without evidence of fracture or subluxation. No concerning bony lesion or abnormal sclerosis to suggest lesion. JOINTS: No significant degenerative change. SOFT TISSUES: Unremarkable. RAD/Sacrum-Coccyx min 2 Views IMPRESSION: Unremarkable sacrum and coccyx radiographs. Electronically Signed: Pancho Wilson MD at 23:03 EDT , CC: Dr. Carli Lopez, DO; Dr. Андрей Rand, DO Integration Software Developer: Signed Normal [facility] Urinalysis, Completeon 04-27 BACTERIA RARE Normal None Seen [facility] Comment on above: Order Comment: CLEAN CATCH Performed By: #### L [id number] #### [facility] [address] [place], [address] EPI,SQUAMOUS 0-5 SEEN Normal 5-10 [facility] Comment on above: Order Comment: CLEAN CATCH Performed By: #### L [id number] #### [facility] [address] [place], [address] RBC 5-10 SEEN Normal 0-5 [facility] Comment on above: Order Comment: CLEAN CATCH Performed By: #### L [id number] #### [facility] [address] [place], [address] Mucus Ql (Urine sed) 0 SEEN Normal [facility] Comment on above: Order Comment: CLEAN CATCH Performed By: #### L [id number] #### [facility] [address] [place], [address] WBC 0 SEEN Normal 0-5 [facility] Comment on above: Order Comment: CLEAN CATCH Performed By: #### L [id number] #### [facility] [address] [place], [address] MR LUMBAR SP WO CONTRASTon 1 MR LUMBAR SP WO CONTRAST [place] [address] [place], [place] [address] Patient: KATHERINE ESTRADA Phone#: : 1980 Age: 39 Gender: F Pt. Type: Out Account: [id number] Location: Ordering: YURIDIA CLOUD Exam Date: 07/04/2020/12:46 Family Phys: АНДРЕЙ RAND Charge Code: [id number] Physician: Mcleod Order #: [id number] DLP Dose#: PROCEDURE: MRI LUMBAR SPINE WITHOUT CONTRAST COMPARISON: None. INDICATIONS: Low back pain TECHNIQUE: A variety of imaging planes and parameters were utilized for visualization of suspected pathology. FINDINGS: PARASPINAL AREA: Normal with no visible mass. BONES: No fracture, pars defect, or osseous lesion. CORD/CAUDA EQUINA: Normal caliber, contour, and signal intensity. LUMBAR DISC LEVELS: L1-L2: No significant disc/facet abnormality, spinal stenosis, or foraminal stenosis. L2-L3: No significant disc/facet abnormality, spinal stenosis, or foraminal stenosis. L3-L4: No significant disc/facet abnormality, spinal stenosis, or foraminal stenosis. L4-L5: Disc degeneration is present. There is broad-based central disc bulge with flattening of the anterior aspect of the thecal sac. There is mild bilateral foraminal narrowing. L5-S1: Disc degeneration is present. There is broad-based central disc bulge. Mild increase in signal is consistent with annular rupture. There is mild bilateral foraminal narrowing. CONCLUSION: 1. Broad-based central disc bulge at L4-5 and L5-S1. There is disc degeneration. Mild bilateral foraminal narrowing is present. Dictated by: Carmen Jacobsen MD on 07/04/2020 at 16:23 Approved by: Carmen Jacobsen MD on 07/04/2020 at 16:26 Normal [facility] Encounters Encounter Date Encounter Type Care Provider Facility Start: 02-01-2025 ambulatory Andreea Servin ANALYZER SALES Fa cility:[facility] Start: 01-16-2025 End: 01-16-2025 ambulatory Andreea Servin ANALYZER SALES-C Work Phone: [facility] Work Phone: Start: 01-16-2025 End: 01-16-[address] Prieto Hull MD -Radiology [facility] Work Phone: Start: 01-16-2025 End: 01-16-2025 ambulatory Andreea Servin NP Facility:[facility] Start: 01-06-2025 End: 01-06-2025 ambulatory Andreea Servin NP-C Work Phone: [facility] Work Phone: Start: 01-06-2025 End: 01-06-2025 Patient encounter procedure Andreea Servin NP-C -Ultrasound, [facility] Work Phone: Start: 01-06-2025 End: 01-06-2025 ambulatory Andreea Servin NP Facility:[facility] Start: 12-05-2024 End: 12-05-[address] Андрей Rand DO Work Phone: [facility] Work Phone: Start: 12-05-2024 End: 12-05-[address] Prieto Hull MD -Radiology, [facility] Work Phone: Start: 12-05-2024 End: 12-05-2024 ambulatory Prieto Hull Facility:[facility] Start: 11-14-2024 End: 11-14-[address] Андрей Rand DO Work Phone: [facility] Work Phone: Start: 11-14-2024 End: 11-14-[address] Prieto Hull MD -Radiology, [facility] Work Phone: Start: 11-14-2024 End: 11-14-2024 ambulatory Prieto Hull Facility:[facility] Start: 10-11-2024 ambulatory Andreea Servin NP Fa cility:[facility] Start: 10-11-2024 Non-patient / Non-visit Dr. Ashu CHANEL -[facility] Work Phone: Start: 10-11-2024 End: 10-11-2024 Patient encounter procedure Andreea Servin NP-C -Cardiovascular Services Work Phone: Start: 10-11-2024 End: 10-11-2024 ambulatory Andreea Servin NP Facility:[facility] Start: 08-09-2024 End: 08-09-[address] Андрей Rand DO Work Phone: -Outpatient Bone Densitometry Work Phone: Start: 08-09-2024 End: 08-09-2024 ambulatory CAREN PANIAGUA Facility:[facility] Start: 04-27-2024 End: 04-28-2024 Emergency department patient visit Carli Lopez Facility:[facility] Start: 07-04-2020 End: 07-04-2020 [facility] Procedures Date Procedure Procedure Detail Performing Clinician Start: 01-16-2025 X-ray of lumbosacral spine Andreea AGUDELO Work Phone: Start: 12-05-2024 X-ray of lumbosacral spine Dr. Андрей Rand DO Work Phone: Start: 11-14-2024 X-ray of lumbar spin e, two or three views Dr. Андрей Rand DO Work Phone: Start: 08-09-2024 Dual energy X-ray absorptiometry Dr. Андрей Rand DO Work Phone: Payers Date Payer Category Payer Unknown . 2024 Self-pay [id number] 2024 Self-pay [id number] 2009 Unknown [facility] [id number] Unknown [id number] 2.16.8 [id number] Unknown [id number] 2.16.8 [id number] Unknown [id number] 2.16.8 [id number] Unknown [id number] 2.16.8 [id number] Unknown [id number] 2.16.8 [id number] Unknown [id number] 2.16.8 [id number] Unknown [id number] 2.16.8 [id number] Unknown [id number] 2.16.8 [id number] Unknown [id number] 2.16.8 [id number] Unknown [id number] 2.16.8 [id number] Social History Date Type Detail Facility Start: 04-27-2024 Tobacco smoking stat [facility] Never smoked tobacco (finding) [facility] Start: 11-10-2019 With Family With Family [facility] Start: 2024 End: 12-07-2024 Sex Female (finding) [facility] Start: 1980 Sex Assigned At Female W [facility] Radiology Diagnostic study note 01-18-2025 Note Date & Type Note Facility 01-18-2025 Radiology Diagnostic study note [facility] Imaging Services [address] [place], [place] [id number] L/S Spine Min 4 Views MR#: [id number] Acct: [id number] Name: KATHERINE ESTRADA Rep #: [id number] : 1980 F 44 From: Roe Browning MD PCP: Andreea Servin ANALYZER SALES-C Status: RE G CLI Study:L/S Spine Min 4 Views Date of Exam: 01/16/25 Exam# [id number] Ordering Dr: Jose Carlos Hull MD PROCEDURE: L/S SPINE MIN 4 VIEWS 01/16/2025 REASON FOR EXAM: LUMBAR DISC HERNIATION TECHNIQUE: Four views, AP, lateral and flexion-extension COMPARISON: 12/05/2024 FINDINGS: Status post intervertebral disc replacement/prosthesis L4-5 and L5-S1 appear intact and anatomic. No fracture or malalignment. No evidence of instability. RAD/L/S Spine Min 4 Views IMPRESSION: No significant interval change in appearance of the lumbar spine as above. Reading Location: [facility] CC: MAGNUS Servin; Dr. Prieto Hull MD ~ Integration Software Developer: Signed [facility] Radiology Diagnostic study note 12-06-2024 Note Date & Type Note Facility 12-06-2024 Radiology Diagnostic study note [facility] Imaging Services [address] [place], [place] [address] L/S Spine Min 4 Views MR#: [id number] Acct: [id number] Name: KATHERINE ESTRADA Rep #: [id number] : 1980 F 44 From: Roe Browning MD PCP: MAGNUS Stein Status: RE G CLI Study:L/S Spine Min 4 Views Date of Exam: 12/05/24 Exam# [id number] Ordering Dr: Jose Carlos Hull MD PROCEDURE: L/S SPINE MIN 4 VIEWS 12/05/2024 REASON FOR EXAM: OTHER INTERVERTEBRAL DISC DISPLACEMENT, LUMBAR REGION TECHNIQUE: Standing AP, lateral neutral and lateral flexion-extension, 4 total images COMPARISON: 11/14/2024 FINDINGS: 5 [id number] lumbar vertebral body types. Again note of previous intervertebral disc spacers L4-5 and L5-S1 again appear anatomic without significant interval change in appearance. No fracture or malalignment. No evidence of instability on flexion-extension views. There is not much degree of change in range of motion between the neutral, flexion or extension. RAD/L/S Spine Min 4 Views IMPRESSION: Again note of previous intervertebral disc spacers L4-5 and L5-S1 again appear anatomic without significant interval change in appearance as above. Reading Location: [facility] CC: MAGNUS Servin; Dr. Prieto Hull MD ~ Integration Software Developer: Signed [facility] Radiology Diagnostic study note 11-14-2024 Note Date & Type Note Facility 11-14-2024 Radiology Diagnostic study note [facility] Imaging Services [address] [place] [address] Lumbar Spine 2 or 3 Views MR#: [id number] Acct: [id number] Name: KATHERINE ESTRADA Rep #: [id number] : 1980 F 43 From: Starr Mendez MD PCP: Andreea Servin, ANALYZER SALES-C Status: RE G CLI Study:Lumbar Spine 2 or 3 Views Date of Exam: 11/14/24 Exam# [id number] Ordering Dr: Jose Carlos Hull MD PROCEDURE: [facility]BAR SPINE [facility] 11/14/2024 REASON FOR EXAM: LUMBAR DISC HERNIATION TECHNIQUE: AP and lateral views of the lumbar spine were obtained. COMPARISON: None FINDINGS: Operative changes of disc replacement at L4-L5 and L5-S1. Fracture/dislocation: None visible. Vertebral body heights: Preserved. Alignment: Unremarkable. Disc spaces: As above. Disc heights otherwise preserved. Facets: Suspect mild facet arthropathy at L5-S1. Soft tissues: Unremarkable. Foreign bodies: None visible. Bone mineralization: Grossly unremarkable. RAD/Lumbar Spine 2 or 3 Views IMPRESSION: 1. Operative changes as above without visible acute abnormality. 2. Additional description as above. Reading Location: [facility] CC: ANALYZER SALES-C Andreea Servin; Dr. Prieto Hull MD ~ Integration Software Developer: Signed [facility] Evaluation note Note Date & Type Note Facility Evaluation note No assessment information availa [facility] Work Phone: Reason for referral (narrative) Note Date & Type Note Facility Reason for referral (narrative) No reason for referral information available [facility] Work Phone: Summary Purpose Family History No Family History Records FoundNo Family History Records Found Advance Directives No Advanced Directives Records Found Advance Directive Response Recorded Date/ Time Living Will No April 27 8:16pm Do you have a Healthcare Power of Ticker Maintainer? No April 27, 2024 8:16pm Chief Complaint and Reason for Visit Chief Complaint Admit Date OSTEOPOROSIS SCREENING August 09 8:59am Palpitations October 11, 2024 7 :47am Palpitations October 11, 2024 8 :52am Chief Complaint Admit Date Palpitations October 11, 2024 7 :47am Palpitations October 11, 2024 8 :52am Lower abdominal pain, unspecified January 2n d2024 12:40pm Chief Complaint Admit Date Palpitations October 11, 2024 7 :47am Palpitations October 11, 2024 8 :52am Lower abdominal pain, unspecified January 2n d2024 12:40pm LUMBAR XRAY January 16, 2025 2:46p m Additional Source Comments INFORMATION SOURCE (unrecogn ized section and content) DATE CREATED AUTHOR 07/04/2020 [facility] DATE CREATED AUTHOR AUTHOR'S ORGANIZ ATION 01/21/2025 [facility] Care Teams (unrecognized sec tion and content) Team Status: Active Member Role Status Dates Andreea Servin ANALYZER SALES, ANALYZER SALES-C Primary Care Provider Activ e Team Status: Inactive Member Role Status Dates Dr. Андрей Rand DO Primary Care Provider Active Start: August 09, 2024 End: August 09, 2024 DELLA FOSTER Attending Provider Active Start: August 09, 2024 End: August 09, 2024 DELLA FOSTER Referring Provider Active Start: August 09, 2024 End: August 09, 2024 Team Status: Inactive Member Role Status Dates Andreea Servin ANALYZER SALES, ANALYZER SALES-C Primary Care Provider Activ e Start: October 11, 2024 End: October 11, 2024 Andreea Servin NP, ANALYZER SALES-C Attending Provider Active Start: October 11, 2024 End: October 11, 2024 Andreea Servin NP, ANALYZER SALES-C Referring Provider Active Start: October 11, 2024 End: October 11, 2024 Team Status: Active Member Role Status Dates Andreea Servin NP, ANALYZER SALES-C Primary Care Provider Activ e Start: October 11, 2024 Dr. Junior Mead MD Attending Provider Active S tart: October 11, 2024 Team Status: Active Member Role Status Dates Andreea Servin NP, ANALYZER SALES-C Primary Care Provider Activ e Start: October 11, 2024 Andreea Servin NP, ANALYZER SALES-C Referring Provider Active Start: October 11, 2024 Dr. Junior Mead MD Attending Provider Active S tart: October 11, 2024 Team Status: Inactive Member Role Status Dates Andreea Servin NP, ANALYZER SALES-C Primary Care Provider Activ e Start: November 14, 2024 End: November 14, 2024 Dr. Prieto Hull MD Attending Provider Active Start: November 14, 2024 End: November 14, 2024 Dr. Prieto Hull MD Referring Provider Active Start: November 14, 2024 End: November 14, 2024 Team Status: Inactive Member Role Status Dates Andreea Servin NP, ANALYZER SALES-C Primary Care Provider Activ e Start: December 05, 2024 End: December 05, 2024 Dr. Prieto Hull MD Attending Provider Active Start: December 05, 2024 End: December 05, 2024 Dr. Prieto Hull MD Referring Provider Active Start: December 05, 2024 End: December 05, 2024 Team Status: Inactive Member Role Status Dates Andreea Servin ANALYZER SALES, ANALYZER SALES-C Primary Care Provider Activ e Start: January 06, 2025 End: January 06, 2025 Andreea Servin ANALYZER SALES, ANALYZER SALES-C Attending Provider Active Start: January 06, 2025 End: January 06, 2025 Andreea Servin ANALYZER SALES, ANALYZER SALES-C Referring Provider Active Start: January 06, 2025 End: January 06, 2025 Team Status: Inactive Member Role Status Dates Andreea Ellen Servin ANALYZER SALES, ANALYZER SALES-C Primary Care Provider Activ e Start: January 16, 2025 End: January 16, 2025 Dr. Prieto Hull MD Attending Provider Active Start: January 16, 2025 End: January 16, 2025 Dr. Prieto Hull MD Referring Provider Active Start: January 16, 2025 End: January 16, 2025 Goals (unrecognized section and content) Goals may be documented in a n alternate sectionGoals may be documented in an alternate sectionGoals may be documented in an alternate sectionGoals may be documented in an alternate section FOR RECORDS PERTAINING TO PATIENTS WHO ARE OR HAVE BEEN ENROLLED IN A CHEMICAL DEPENDENCY/SUBSTANCEABUSE PROGRAM, SOME INFORMATION MAY BE OMITTED. This clinical summary was aggregated from multiple sources. Caution should be exercised in using it in the provision of clinical care. This summary normalizes information from multiple sources, and as a consequence, information in this document may materially change the coding, format and clinical context of patient data. In addition, data may be omitted in some cases. CLINICAL DECISIONS SHOULD BE BASED ON THE PRIMARY CLINICAL RECORDS. [facility] provides no warranty or guarantee of the accuracy or completeness of information in this document.
== END | disposition home or self-care (01) ==
LOC: RAD 09:24
PROVIDERS: PCP Nurse Practitioner Family; Referring Provider Orthopaedic Surgery Orthopaedic Surgery of the Spine; Visit Provider Orthopaedic Surgery Orthopaedic Surgery of the Spine
DX: M51.26 Other intervertebral disc displacement, lumbar region (principal)
CPT/HCPCS: 72110